=== PATIENT | male | born 1985 | race Two or more races ===

== ENCOUNTER → 2018-03-01 | Emergency (ER) | payer OTHER ==
[~2018-03-01] VITALS: Ht 180.3 cm; Wt 149.7 kg
[~2018-03-01] MED LIST: MEDROLPACK PO; SPIRIVA RESPIMAT4 G1 IH; VENTOLIN HFA18 GM IH
== END | disposition left against medical advice (07) ==
LOC: ER 01:54
DX: Z53.20 Procedure and treatment not carried out because of patient's decision for unspecified reasons (principal)

== ENCOUNTER 2021-02-26 05:50 | Emergency (ER) | payer OTHER ==
[~2021-02-26] VITALS: Ht 180.3 cm; Wt 163.3 kg
== END 2021-02-26 12:57 | disposition home or self-care (01) ==
LOC: ER 05:50
DX: J45.998 Other asthma (principal); F17.200 Nicotine dependence, unspecified, uncomplicated; Z03.818 Encounter for observation for suspected exposure to other biological agents ruled out; R09.02 Hypoxemia